=== PATIENT | male | born 2000 | race Caucasian/White ===

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

== ENCOUNTER → 2021-02-01 17:29 | Outpatient (CLI) | payer BC, SELFPAY ==
[2021-02-04 10:12] LABS: Endomysial IgA Antibody Negative (Negative)
[2021-02-04 16:13] LABS: Deamidated Gliadin Abs, IgA 3 units (0-19); Deamidated Gliadin Abs, IgG 2 units (0-19); Saccharomyces cerevisiae, IgA <20.0 Units (0.0-24.9); Saccharomyces cerevisiae, IgG <20.0 Units (0.0-24.9); Tissue Transglutaminase IgA Ab <2 U/mL (0-3); Tissue Transglutaminase IgG Ab 17 U/mL (0-5)
[2021-02-06 08:48] LABS: Reticulin IgA Antibody Negative titer (Neg:<1:2.5)
== END ==
PROVIDERS: Visit Provider Nurse Practitioner Family
DX: Z01.812 Encounter for preprocedural laboratory examination (principal); Z11.52 Encounter for screening for COVID-19; Z12.11 Encounter for screening for malignant neoplasm of colon; R19.7 Diarrhea, unspecified; K58.0 Irritable bowel syndrome with diarrhea
CPT/HCPCS: 36415; 83516; 86255; 86256; 86671; U0003

== ENCOUNTER 2021-02-04 09:58 | Day surgery (SDC) | payer BC, SELFPAY ==
[2021-02-01 14:21] VITALS: BMI 24.6
[2021-02-04 10:18] VITALS: BP 130/63; PULSE 69; RESP 18; TEMP 36.8; O2SAT 100
[2021-02-04 11:11] VITALS: O2SAT 96
--- NOTE | 2021-02-04 11:15 | HMH.ANESCL ---
[facility] Anesthesia Checklist - Structural Data Admitted From: Home Planned Operative Procedure/s: colonoscopy Consent for Planned Operative Procedure(s) Verified: Yes - Airway Assessment C-Spine Mobility Assessed: Yes TMJ Mobility Assessed: Yes Dentition: Good Dentition - Neurological Assessment Level of Consciousness: Awake, Alert, Appropriate - Anesthesia Plan Anesthesia Risk discussed: Yes Anesthesia Plan: Verified ASA Class: II Anesthesia Type: MAC [facility] History I have reviewed the patient's past medical history: Yes Medical History: Denies:: Cancer, Diabetes Mellitus Type 1, Diabetes Mellitus Type 2, MRSA, Seizures *Have you ever received a pneumonia vaccine?: No *Have you received a flu vaccine this season?: No Anesthesia experience/problems:: none Laterality Cases: Left: Arthroscopy Knee Amputation: No Fractures: Yes (finger) - *Social History Smoking Status: Never smoker Tobacco Type: cigarettes # Packs/Day (cigarettes): 1 Alcohol Intake: never Substance Use Type: denies use *Occupational Status:: employed Housing: house *Travel in the last 8 weeks: None Family Hx:: Unable to obtain, No significant family history
--- NOTE | 2021-02-04 11:34 | HMH.PROC ---
[facility] Procedure Note Procedure Note:: Colonoscopy Procedure Report: Colonoscopy with cold biopsies Endoscopist: Avni Santos II, MD Referring physician: Tomás Lepe MD Date of Procedure: February 04, 2021 Equipment: Olympus 190 variable stiffness pediatric colonoscope Sedation: MAC sedation Indication: Mr. Aguilar is a 20-year-old gentleman with a long history of irritable bowel syndrome since childhood who is here for diagnostic colonoscopy. He did see a piper installer at [facility] and at the [facility]. He did have an upper endoscopy at the [facility]. The patient reports bowel urgency and diarrhea. He has had lower abdominal discomfort for many years. He does state that this occurs 3-4 times a week and occurs the first thing in the morning. He does get abdominal crampiness. Sometimes he will have some resurgence after he gets to work in the morning. He does have more rare nausea with vomiting. He has had some loss of appetite. He will get some intermittent constipation. He tried dicyclomine that worked well initially but later stopped working. He also tried hyoscyamine with similar results. He does take IBgard 1 or 2 capsules a day and thinks that this may result in some improvement. His recent celiac serologies were normal (normal tissue transglutaminase and and antiendomysial antibody). His hemoglobin 14.6 and hematocrit 39.4 were normal. He also had normal CRP (less than 0.2) and normal sed rate (5). His ALT 43 and alkaline phosphatase 83 were normal. His amylase 21 and lipase 85 were normal. He had a normal IgA antibody 131. His stool lactoferrin was less than 1.0. Procedure: Prior to the procedure, a history and physical exam was performed, and patient's medications and allergies were reviewed. The risks, benefits and alternatives of the sedation and procedure were discussed with the patient. All questions were answered and informed consent was obtained. The patient was brought to the procedure room. Patient identification and proposed procedure were verified by the physician and the nurse. The patient was placed in a left lateral decubitus position and the scope was passed under direct vision. Throughout the procedure, the patient's blood pressure, pulse, and oxygen saturations were monitored continuously. The colonoscopy was accomplished without difficulty. The patient tolerated the procedure well. Findings: On digital rectal examination there was normal rectal tone. There were no external hemorrhoids. The colonoscope was introduced through the anal canal to the rectum and advanced to the cecum. The ileocecal valve and appendiceal orifice were identified. The scope was advanced a short distance into the ileum which appeared grossly normal. The scope was then withdrawn into the colon. The cecum, ascending and transverse colon and mucosa were grossly normal. Random cold biopsies were taken from the colon. There were very mildly scattered diverticuli throughout the sigmoid colon (LEFT colon). There was a single diminutive hyperplastic appearing sigmoid polyp removed via cold biopsy. The rectum itself was normal. Upon retroflexion within the rectum there were grade 1 internal hemorrhoids. The preparation was excellent throughout with [place] Preparation Score of 9. The cecal time was 12 minutes. Impression: 1. Diminutive hyperplastic appearing sigmoid polyp (3 mm) 2. Very mild sigmoid diverticulosis 3. Grade 1 internal hemorrhoids Plan: I do feel that the patient has spastic diverticular disease (form of IBS). I will discuss dietary measures, bulking fiber (FiberCon) and additional treatment options. I will follow-up the biopsies. I will review the findings with the patient and family.
[2021-02-04 11:35] VITALS: BP 108/56; PULSE 63; RESP 16; TEMP 36.4; O2SAT 99
[2021-02-04 11:45] VITALS: BP 104/57; PULSE 52; RESP 16; O2SAT 100
[2021-02-04 11:55] VITALS: BP 103/63; PULSE 53; RESP 16; O2SAT 100
[2021-02-04 12:15] VITALS: BP 108/63; PULSE 64; RESP 16; O2SAT 100
== END 2021-02-04 12:15 | disposition home or self-care (01) ==
PROVIDERS: PCP Family Medicine; Visit Provider Internal Medicine Gastroenterology
PROC: 0DJD8ZZ Inspection of Lower Intestinal Tract, Via Natural or Artificial Opening Endoscopic (ICD-10-PCS; CPT 45378; principal; 2021-02-04 12:30)
DX: K63.5 Polyp of colon (principal); K57.30 Diverticulosis of large intestine without perforation or abscess without bleeding; K64.0 First degree hemorrhoids; K58.2 Mixed irritable bowel syndrome
CPT/HCPCS: 45380

== ENCOUNTER 2022-01-01 02:23 | Emergency (ER) | payer BC, SELFPAY ==
[2022-01-01 02:24] VITALS: BP 129/67; PULSE 72; RESP 16; TEMP 36.4; O2SAT 100; BMI 23.7
--- NOTE | 2022-01-01 02:41 | CT_ITS ---
PROCEDURE INFORMATION: Exam: CT Abdomen And Pelvis With Contrast Exam date and time: 01/01/2022 2:46 AM Age: 21 years old Clinical indication: Nausea and vomiting; Abdominal pain; Localized; Lower TECHNIQUE: Imaging protocol: Computed tomography of the abdomen and pelvis with contrast. Radiation optimization: All CT scans at this facility use at least one of these dose optimization techniques: automated exposure control; mA and/or kV adjustment per patient size (includes targeted exams where dose is matched to clinical indication); or iterative reconstruction. Contrast material: ISOVUE; Contrast volume: 75 ml; Contrast route: IV; COMPARISON: ABDPELWO CT abdomen pelvis wo con 03/19/2018 5:40 PM FINDINGS: Liver: No suspicious mass. Gallbladder and bile ducts: No calcified stones. No ductal dilation. Pancreas: No ductal dilation. No peripancreatic inflammatory changes. Spleen: Unremarkable. Adrenal glands: No mass. Kidneys and ureters: Mild left-sided hydroureteronephrosis secondary to 0.2 cm calculus at the ureterovesicular junction. Stomach and bowel: Non-obstructive bowel gas pattern. No significant wall thickening. Appendix: Unremarkable appendix. Intraperitoneal space: No free air. No ascites. Vasculature: No abdominal aortic aneurysm. Lymph nodes: No enlarged lymph nodes. Urinary bladder: Unremarkable as visualized. Reproductive: The prostate is not enlarged. Bones/joints: No suspicious osseous lesion. No acute fracture. Soft tissues: No suspicious mass. IMPRESSION: Mild left-sided hydroureteronephrosis secondary to 0.2 cm calculus at the ureterovesicular junction.
[2022-01-01 03:00] LABS: Basophils # 0.3 K/mm3 (0-0.2); Eosinophils # 0.1 K/mm3 (0.0-0.4); Hematocrit 46.2 % (42.0-52.0); Hemoglobin 15.7 g/dL (14.1-18.0); Lymphocytes # 2.7 K/mm3 (0.7-4.5); Lymphocytes % 27.6 % (10-50); Mean Corpuscular HGB Conc 33.9 g/dL (31.8-35.4); Mean Corpuscular Hemoglobin 30.1 pg (27.0-31.2); Mean Corpuscular Volume 88.8 fl (80-94); Mean Platelet Volume 9.7 fl (7.4-10.4); Monocytes # 0.7 K/mm3 (0.1-1.0); Monocytes % 7.2 % (1.7-9.3); Neutrophils # 5.9 K/mm3 (1.8-7.8); Neutrophils % 61.2 % (37.0-80.0); Platelet Count 269 K/mm3 (142-424); White Blood Count 9.7 K/mm3 (4.5-13.0)
[2022-01-01 03:01] LABS: Microscopic, Urine URINE MICROSCOPIC (MICROSCOPIC)
[2022-01-01 03:05] LABS: Chloride 104 mmol/L (98-107)
[2022-01-01 03:06] LABS: Blood, Urine 3+ (Negative); Glucose,Urine (UA) Negative (Negative); Ketones,Urine 2+ (Negative); Leukocyte Esterase,Urine Negative (Negative); Nitrate,Urine Negative (Negative); Protein,Urine TRACE (Negative); Sodium 140 mmol/L (136-145); Specific Gravity, Urine 1.015 (1.005-1.030); Urobilinogen,Urine 0.2 EU/dl (0.2)
[2022-01-01 03:08] LABS: Alanine Aminotransferase 26 U/L (12-78); Alkaline Phosphatase 63 U/L (38-126); Amylase 45 U/L (30-110); Anion Gap 13.8 mEq/L (5-15); Aspartate Amino Transferase 34 U/L (17-59); Bilirubin,Total 0.7 mg/dl (0.2-1.3); Blood Urea Nitrogen 10 mg/dl (9-20); Carbon Dioxide 25 mmol/L (22.0-30.0); Creatinine Clearance Estimated 205 mL/min (50-200); Estimated Glomerular Filt Rate 144 ml/min (>60); GFR (African American) 174 ML/MIN (>60)
[2022-01-01 03:09] LABS: Albumin/Globulin Ratio 1.9 (1.1-1.8); Calcium 10.2 mg/dl (8.4-10.2); Globulin 2.7 g/dL (1.3-3.2); Glucose 193 mg/dl (74-100); Lipase 56 U/L (23-300); PH,Urine >= 9.0 (5.0-8.5); Total Protein,Serum 7.7 g/dl (6.3-8.2)
[2022-01-01 03:12] LABS: Appearance,Urine Cloudy (Clear); Bilirubin,Urine Negative (Negative); Color,Urine Dark Yellow (Yellow)
[2022-01-01 03:14] LABS: C-Reactive Protein 3.1 mg/L (0-4)
[2022-01-01 03:16] LABS: Potassium 2.8 mmoL/L (3.5-5.1)
[2022-01-01 03:18] LABS: Bacteria,Urine 1+ /lpf; RBC,Urine TNTC #/hpf (0-3)
[2022-01-01 03:36] LABS: Erythrocyte Sedimentation Rate 1 mm/hr (0-15)
--- NOTE | 2022-01-01 03:42 | HMH.EDNVD ---
ED Disposition Clinical Impression: Renal colic on left side Disposition: Home, Self-Care Condition on Discharge: Good Instructions: DI for Kidney Stones Additional Instructions: fluids and see pcp/urology for follow up Prescriptions: Tamsulosin HCl [Flomax 0.4mg capsule] 0.4 mg PO HS #10 cap Transmission Status: Pending to Clinic [facility] Referrals: Slick Lepe MD [Primary Care Provider] - - Critical Care Critical Care Time: No Attestation: On 01/01/22, the high probability of a clinically significant, sudden or life threatening deterioration of the following system(s) required my full and direct attention, intervention and personal management. The time I documented below is in addition to time spent performing reported procedures but includes the following listed in this critical care notation. Medical Decision Making - Medical Records Medical records reviewed: Yes: I reviewed the patient's medical records. - Sunil Inquiry Pt receiving controlled substance: No Vital Signs: 01/01/22 02:24 Temperature 97.6 F Temperature Source Oral Pulse Rate [Left Radial] 72 Respiratory Rate 16 Blood Pressure [Right Arm] 129/67 Blood Pressure Mean [Right Arm] 87 Blood Pressure Source [Right Arm] Automatic Cuff 02 Sat by Pulse Oximetry 100 Oxygen Delivery Method Room Air - Lab Data Lab results reviewed: Yes: I reviewed the patient's lab results. Lab Results 01/01/22 02:39: Urine Color Dark yellow, Urine Appearance Cloudy, Urine pH >= 9.0 H, Ur Specific [place] 1.015, Urine Protein Trace, Urine Glucose (UA) Negative, Urine Ketones 2+, Urine Blood 3+, Urine Nitrate Negative, Urine Bilirubin Negative, Urine Urobilinogen 0.2, Ur Leukocyte Esterase Negative, Urine RBC Tntc, Urine WBC 3-5, Ur Squamous Epith Cells 3-5, Urine Bacteria 1+ 01/01/22 02:39: WBC 9.7, RBC 5.20, Hgb 15.7, Hct 46.2, MCV 88.8, MCH 30.1, MCHC 33.9, RDW 14.0, Plt Count 269, MPV 9.7, Neut % (Auto) 61.2, Lymph % (Auto) 27.6, Love % (Auto) 7.2, Eos % (Auto) 1.0, Baso % (Auto) 3.0 H, Neut # (Auto) 5.9, Lymph # (Auto) 2.7, Love # (Auto) 0.7, Eos # (Auto) 0.1, Baso # (Auto) 0.3 H, ESR 1 01/01/22 02:39: Sodium 140, Potassium 2.8 L*, Chloride 104, Carbon Dioxide 25, Anion Gap 13.8, BUN 10, Creatinine 0.70, Estimated Creat Clear 205, Estimated GFR 144, Est GFR ( Amer) 174, Glucose 193 H, Calcium 10.2, Total Bilirubin 0.7, AST 34, ALT 26, Alkaline Phosphatase 63, C-Reactive Protein 3.1, Total Protein 7.7, Albumin 5.0, Globulin 2.7, Albumin/Globulin Ratio 1.9 H, Amylase 45, Lipase 56 01/01/22 02:39: Lactate 3.0 H 01/01/22 02:39: Procalcitonin 0.040 Result diagrams: 01/01/22 02:39 01/01/22 02:39 Orders (Tests/Meds): ED MEDICATIONS Generic Name Dose Route Start Last Admin Trade Name Freq PRN Reason Stop Dose Admin Sodium Chloride 1,000 mls @ 999 mls/hr 01/01/22 02:45 01/01/22 02:50 Sod Chlor 0.9% 1000ml Bag IV 01/01/22 03:45 999 mls/hr .Q1H1M REYNALDO Administration Sodium Chloride 8 ml 01/01/22 02:44 Sodium Chloride 0.9% 10ml Vial IV 01/31/22 02:43 NEEDED PRN dilute pepcid Tamsulosin HCl 0.4 mg 01/01/22 21:00 01/01/22 03:38 Tamsulosin 0.4mg Capsule PO 01/31/22 20:59 0.4 mg HS REYNALDO Administration Discontinued Medications Generic Name Dose Route Start Last Admin Trade Name Freq PRN Reason Stop Dose Admin Famotidine 20 mg 01/01/22 02:44 01/01/22 02:51 Famotidine 20mg/2ml Vial IV 01/01/22 02:45 20 mg ONCE ONE Administration Iopamidol 75 ml 01/01/22 02:56 01/01/22 02:57 Iopamidol-370 (76%);100ml Bottle IV 01/01/22 02:57 75 ml ONCE ONE Administration Ketorolac Tromethamine 30 mg 01/01/22 03:01 01/01/22 03:29 Ketorolac 30mg/Ml Vial IV 01/01/22 03:02 30 mg ONCE ONE Administration Ketorolac Tromethamine 30 mg 01/01/22 03:01 01/01/22 03:21 Ketorolac 30mg/Ml Vial IV 01/01/22 03:02 Not Given ONCE ONE Metoclopramide HCl 10 mg 01/01/22 02:
[2022-01-01 03:50] VITALS: BP 127/59; PULSE 57; RESP 16; TEMP 36.8; O2SAT 100
[2022-01-01 06:59] LABS: Reflex Lactic Add Lactic Reflex
== END 2022-01-01 04:00 | disposition home or self-care (01) ==
PROVIDERS: Emergency Provider Emergency Medicine; PCP Family Medicine
DX: N23 Unspecified renal colic (principal)
CPT/HCPCS: 74177; 80053; 81001; 82150; 83605; 83690; 84145; 85025; 85651; 86140; 87040; 96365; 96375; 99284; J2405; Q9967

== ENCOUNTER 2022-01-02 09:47 | Emergency (ER) | payer BC, SELFPAY ==
[2022-01-02 09:47] VITALS: BP 142/69; PULSE 61; RESP 18; TEMP 36.7; O2SAT 97; BMI 23.1
--- NOTE | 2022-01-02 09:50 | PC.NURSE ---
pt ambulatory to restroom to provide urine specimen; no complications
--- NOTE | 2022-01-02 09:55 | PC.NURSE ---
Aura Deras, RN at
--- NOTE | 2022-01-02 09:55 | PC.NURSE ---
patient ambulatory to ED room 10 without complications; warm blanket given. Family at BS
[2022-01-02 09:59] LABS: Microscopic, Urine URINE MICROSCOPIC (MICROSCOPIC)
[2022-01-02 10:02] LABS: Blood, Urine 2+ (Negative); Color,Urine YELLOW (Yellow); Glucose,Urine (UA) Negative (Negative); Ketones,Urine 2+ (Negative); Leukocyte Esterase,Urine Negative (Negative); Nitrate,Urine Negative (Negative); PH,Urine 7.5 (5.0-8.5); Protein,Urine Negative (Negative); Specific Gravity, Urine 1.015 (1.005-1.030); Urobilinogen,Urine 0.2 EU/dl (0.2)
--- NOTE | 2022-01-02 10:02 | PC.NURSE ---
ED MD at
--- NOTE | 2022-01-02 10:08 | HMH.EDGENADL ---
ED Disposition Clinical Impression: Ureteral calculus Disposition: Home, Self-Care Condition on Discharge: Good Instructions: DI for Kidney Stones Additional Instructions: Continue Flomax as prescribed. Percocet as needed for pain. Zofran as needed for nausea. Additional instructions for KIDNEY STONE (URETERAL CALCULUS): See your PCP tomorrow as scheduled. Drink plenty of fluids. Strain your urine and save any stones you catch. Return immediately if you develop a fever or have uncontrollable vomiting or uncontrollable pain. What is known about DIET and KIDNEY STONES: Most kidney stones contain calcium oxalate. The logical assumption would be that you should avoid calcium and oxalate in your diet. Contrary to what you would think, this is not necessarily the case. What is actually recommended for kidney stone prevention is a diet that contains MODERATELY HIGH AMOUNTS OF CALCIUM and is LOW IN SODIUM with PLENTY OF FLUIDS. Recommendations: Drink a lot of water each day: A minimum would be 8-10 glasses (8 oz each) of fluid per day. Reduce Sodium: Try not to get more than 1500 mg a day. Increase Calcium: Dietary calcium prevents absorption of oxalate which helps prevent stones. Make sure you get about 1000 to 1200 mg a day. You can get enough calcium from dairy products without taking supplements. Calcium should be ingested with meals, not in between meals. You need to get your calcium at mealtime to decrease the absorption of oxalate from other foods. Eat dairy with each meal (e.g. milk or cheese or yogurt). Oxalate: Although some experts recommend avoiding oxalate in your diet, there have been no studies that prove this works. Eating more calcium will reduce oxalate absorption, and is probably all that is needed to reduce oxalate in your urine. Oxalate containing foods are generally good for you in all other respects - leafy greens, nuts, etc... So avoiding them unnecessarily might not be the best thing for your health. ALSO: If you retrieve your stone by straining your urine, take it to your physician for stone analysis, which can help tailor your dietary recommendations. For further reading, check out the [facility] web page about the kidney stone diet: [email or web address].[email or web address]-[email or web address] Additional instructions for CONTROLLED SUBSTANCES: You have been prescribed a medication that is a controlled substance. Controlled substances include pain medications known as opiates and sedative nerve medications known as benzodiazepines. Tramadol, fioricet, and gabapentin are also controlled substances. Some common opiates include: Codeine (such as Tylenol #3) Hydrocodone (Vicodin, Lortab, Lorcet, [place]) Oxycodone (Percocet, Percodan, Oxycodone, Oxy IR) Some common benzodiazepines include: Diazepam (Valium) Lorazepam (Ativan) Alprazolam (Xanax) Clonazepam (Klonopin) Oxazepam (Serax) All of these controlled substances are highly addictive and frequently abused. Misuse can and frequently does lead to addiction as well as overdose and . Medication should be stored in a locked cabinet or other secure storage unit. Do not store the medication in a motor vehicle. Short term supplies, 3 days or less, are prescribed because of the highly addictive nature of the medication. Any of the controlled substance medication NOT taken should be disposed of properly and NOT SAVED. The recommended method of disposing of unused medications is: Place the medicines in a sealable plastic bag. If the medicine is a solid, crush it or add water to dissolve it. Add something undesirable (cat litter, coffee grounds, etc.) Dispose of sealed bag in household trash Do not flush or pour unused medicines down a sink or drain. Controlled substances should not be shared, given away or sold. Because of the addictive nature and frequent abuse, these medications are sometime
[2022-01-02 10:15] VITALS: BP 126/76; PULSE 59; O2SAT 100
[2022-01-02 10:16] LABS: Basophils # 0.1 K/mm3 (0-0.2); Basophils % 1.3 % (0.1-2.0); Eosinophils # 0.1 K/mm3 (0.0-0.4); Eosinophils % 0.6 % (0.1-12.0); Hematocrit 42.6 % (42.0-52.0); Hemoglobin 14.2 g/dL (14.1-18.0); Lymphocytes # 1.2 K/mm3 (0.7-4.5); Lymphocytes % 13.8 % (10-50); Mean Corpuscular HGB Conc 33.2 g/dL (31.8-35.4); Mean Corpuscular Hemoglobin 29.8 pg (27.0-31.2); Mean Corpuscular Volume 89.7 fl (80-94); Mean Platelet Volume 10.3 fl (7.4-10.4); Monocytes # 0.5 K/mm3 (0.1-1.0); Monocytes % 6.1 % (1.7-9.3); Neutrophils # 6.7 K/mm3 (1.8-7.8); Neutrophils % 78.3 % (37.0-80.0); Platelet Count 171 K/mm3 (142-424); Red Blood Count 4.75 M/mm3 (4.60-6.20); Red Cell Distribution Width 13.8 % (11.5-17.5); White Blood Count 8.5 K/mm3 (4.5-13.0)
[2022-01-02 10:22] LABS: Appearance,Urine Cloudy (Clear)
[2022-01-02 10:30] LABS: Bilirubin,Urine 1+ (Negative)
[2022-01-02 10:32] LABS: Amorphous Sediment,Urine 2+ /lpf; Bacteria,Urine 4+ /lpf; RBC,Urine 20-50 #/hpf (0-3); Squamous Epithelial Cell,Urine Occasional #/hpf (0-5); WBC,Urine Occasional #/hpf (0-3)
[2022-01-02 10:37] VITALS: BP 112/56; PULSE 53; O2SAT 96
[2022-01-02 10:37] LABS: Chloride 106 mmol/L (98-107)
[2022-01-02 10:38] LABS: Potassium 3.6 mmoL/L (3.5-5.1); Sodium 140 mmol/L (136-145)
[2022-01-02 10:40] LABS: Alanine Aminotransferase 17 U/L (12-78); Alkaline Phosphatase 52 U/L (38-126); Aspartate Amino Transferase 26 U/L (17-59); Bilirubin,Total 0.6 mg/dl (0.2-1.3); Blood Urea Nitrogen 12 mg/dl (9-20); Creatinine Clearance Estimated 175 mL/min (50-200); Estimated Glomerular Filt Rate 123 ml/min (>60); GFR (African American) 149 ML/MIN (>60)
[2022-01-02 10:41] LABS: Albumin Level 4.3 g/dl (3.5-5.0); Albumin/Globulin Ratio 1.7 (1.1-1.8); Anion Gap 8.6 mEq/L (5-15); Calcium 9.7 mg/dl (8.4-10.2); Carbon Dioxide 29 mmol/L (22.0-30.0); Globulin 2.6 g/dL (1.3-3.2); Glucose 124 mg/dl (74-100); Total Protein,Serum 6.9 g/dl (6.3-8.2)
[2022-01-02 11:02] VITALS: BP 120/66; PULSE 52; O2SAT 99
[2022-01-02 11:30] VITALS: BP 126/64; PULSE 50; O2SAT 97
--- NOTE | 2022-01-02 11:49 | PC.NURSE ---
pt mother at
--- NOTE | 2022-01-02 11:50 | PC.NURSE ---
KITTY CEVALLOS at discussing test results with pt.
[2022-01-02 12:02] VITALS: BP 126/64; PULSE 61; RESP 19; TEMP 36.7; O2SAT 97
== END 2022-01-02 12:03 | disposition home or self-care (01) ==
PROVIDERS: Emergency Provider Emergency Medicine; PCP Family Medicine
DX: N20.1 Calculus of ureter (principal); M54.9 Dorsalgia, unspecified; R11.10 Vomiting, unspecified
CPT/HCPCS: 80053; 81001; 85025; 87086; 96374; 96375; 96376; 99285; J2405

== ENCOUNTER 2024-06-13 09:37 | Emergency (ER) | payer BC, SELFPAY ==
[2024-06-13 09:37] VITALS: BP 127/72; PULSE 62; RESP 16; TEMP 36.6; O2SAT 100; BMI 22.5
--- NOTE | 2024-06-13 09:39 | XR_ITS ---
FINAL REPORT CLINICAL HISTORY: mid sternum chest pain after smoking COMPARISON: None FINDINGS: A single portable view of the chest was obtained. The heart size and pulmonary vascularity are within normal limits. The mediastinum is within normal limits. No acute pulmonary abnormality is identified. The bony thorax is intact. IMPRESSION: No active cardiopulmonary disease. Reviewed, Interpreted and Dictated by Dima Hinton III, MD Transcribed by Allyn Tavares Authenticated and [facility]
--- NOTE | 2024-06-13 09:40 | ECG_ITS ---
APPROVED REPORT Exam: Resting ECG HR:54 bpm ECG Measurements Heart Rate 54 AXES NC 130 P 23 QRSd 89 QRS 78 QT 408 T 62 QTc 394 Conclusion SINUS BRADYCARDIA Electronically signed by : JOEL SALDAÑA, 06/14/2024 15:01:48
--- NOTE | 2024-06-13 09:53 | PC.NURSE ---
xr at bedside
[2024-06-13] MEDS: KETOROLAC 30MG/ML VIAL 15 MG IV (09:55)
[2024-06-13] MEDS: ALUMINUM/MAGNESIUM/SIMETHICONE 30ML UDC 30 ML PO (09:55)
--- NOTE | 2024-06-13 09:55 | [facility].EDCP ---
Discharge Plan Disposition Patient Disposition: Home, Self-Care Prescriptions Prescriptions: New esomeprazole magnesium 20 mg capsule,delayed release(DR/EC) 20 mg PO DAILY 56 Days Qty: 56 1RF No Action buspirone 10 MG tablet 10 mg PO BID tamsulosin 0.4 MG capsule 0.4 mg PO HS Qty: 10 0RF oxycodone-acetaminophen 1 EACH tablet 1 tab PO Q6HP PRN (Reason: Moderate To Severe Pain) Qty: 20 0RF ondansetron 4 MG tablet,disintegrating 4 mg PO TIDP PRN (Reason: Nausea And Vomiting) Qty: 10 0RF Referrals Follow up/Referrals: Yulissa Lepe [Primary Care Provider] - See instructions Activity Restrictions/Add. Instructions Additional Instructions/Restrictions: Call your family doctor to establish care for this visit to the emergency department and schedule follow-up within 48 hours to ensure improvement. If you have any worsening of your condition or any other concerning signs or symptoms, return to the emergency department or your primary care doctor for further evaluation. Clinical Impressions Clinical Impression: Acute epigastric pain Stand Alone Forms Stand Alone Forms: Work/School Release Print Language Print Language: Niuean Discharge ED Provider: Connor Aquino General Chief Complaint: Chest Pain Stated Complaint: Chest Pain Time Seen by Provider: 06/13/24 09:38 Mode of Arrival: Ambulatory Source of Information: Patient Limitations: No Limitations Description of Symptoms (Recalled from ER Triage Doc. by RN): Patient states that he was at work went outside and got a drink when he decided to take a hit off of his vape. States after that he began to have constant epigastric pain that feels like pressure. History of Present Illness HPI narrative: Please note that above description of symptoms, in this electronic medical record under categorization of recalled from ER triage doctor by RN are reflective of an initial nursing assessment, however, is not reflective of my full history and physical exam that was personally taken and clarified. Consequentially, this preceding description of symptoms, which may include the patient's categorized chief complaint in the EMR, do not reflect my personal clinical impression, and the ultimate description of history of present illness and patient stated complaints should be deferred to this section of the note. Unless stated otherwise or congruent with this section of the note, additional signs, symptoms, or incongruence should be interpreted as inaccurate with my clinical impression. Related Data Home Medications ?Medication ?Instructions ?Recorded ?Confirmed buspirone 10 mg tablet 10 mg PO BID STOMACH CRAMPS 01/01/22 01/01/22 Previous Rx's ?Medication ?Instructions ?Recorded tamsulosin 0.4 mg capsule 0.4 mg PO HS #10 caps 01/01/22 ondansetron 4 mg disintegrating 4 mg PO TIDP PRN Nausea And 01/02/22 tablet Vomiting #10 tabs oxycodone-acetaminophen 5 mg-325 1 tab PO Q6HP PRN Moderate To 01/02/22 mg tablet Severe Pain #20 tabs esomeprazole magnesium 20 mg 20 mg PO DAILY 8 weeks #56 caps 06/13/24 capsule,delayed release Allergies Allergy/AdvReac Type Severity Reaction Status Date / Time No Known Allergies Allergy Unverified 07/28/17 15:10 [facility] Disclaimer: The information contained in this section may have been updated after the patient was seen, as this information can be updated by other users. Social History Smoking Status: Current every day smoker tobacco type: cigarettes packs per day: 1 alcohol intake: never substance use type: denies use current occupational status: employed Travel in the last 8 weeks: None housing: house current occupational exposures/hazards: Yes Other Medical History Have you received the Flu Vaccine for this season: Yes Have you received the Pneumonia Vaccine: No ROS Obtained: Yes All systems reviewed & no additional complaints except as documented Physical Exam General General appearance: alert Neck Neck exam: Present trachea midline Chest Chest inspection: Present normal inspection and symmetric chest wall rise Respiratory Respiratory exam: Present normal lung sounds bilaterally; Absent respiratory distress, wheezes, stridor, accessory muscle use or prolonged expiratory phase Cardiovascular Cardiovascular exam: Present regular rate, normal rhythm and other (Pulses equal and symmetric in upper and lower extremities) Extremities Exam Extremities exam: Absent edema Neurological Exam Neurological exam: Present alert, oriented X3 and CN II-XII intact Skin Skin exam: Present warm and dry; Absent cyanosis, diaphoresis or pallor HEART Score HEART Score HEART Score assessment performed?: Yes HEART Score: 0 Critical Care Critical Care Time Critical Care Time: No Medical Decision Making Medical Records Medical records reviewed: Yes I reviewed the patient's medical records. Sunil Inquiry Pt receiving controlled substance: No Sunil was queried for this patient: No Vital Signs Vital Signs: 06/13/24 09:37 06/13/24 11:04 Temperature 97.9 F 98.0 F Temperature Source Oral Oral Pulse Rate 62 Pulse Rate [Radial] 62 Respiratory Rate 16 16 Blood Pressure 105/69 L Blood Pressure [Right Arm] 127/72 Blood Pressure Mean [Right Arm] 90 Blood Pressure Source Automatic Cuff Blood Pressure Source [Right Arm] Automatic Cuff Blood Pressure Position Sitting Blood Pressure Position [Right Arm] Sitting 02 Sat by Pulse Oximetry 100 Oxygen Delivery Method Room Air Room Air Lab Data Labs: Lab Results 06/13/24 09:52: WBC 5.7, RBC 4.71, Hgb 14.0 L, Hct 42.3, MCV 89.7, MCH 29.8, MCHC 33.2, RDW 13.8, Plt Count 201, MPV 8.6, Neut % (Auto) 47.6, Lymph % (Auto) 43.4, [place] % (Auto) 7.0, Eos % (Auto) 1.0, Baso % (Auto) 1.0, Neut # (Auto) 2.7, Lymph # (Auto) 2.5, [place] # (Auto) 0.4, Eos # (Auto) 0.1, Baso # (Auto) 0.1, APTT 24.6, Sodium 139, Potassium 3.9, Chloride 105, Carbon Dioxide 28, Anion Gap 9.9, BUN 11, Creatinine 0.70, Estimated Creat Clear 195, Estimated GFR 140, Est GFR ( Amer) 169, Glucose 137 H, Calcium 8.8, Total Bilirubin 0.5, AST 30, ALT 18, Alkaline Phosphatase 47, Troponin I < 0.01, Total Protein 6.5, Albumin 4.1, Globulin 2.4, Albumin/Globulin Ratio 1.7, Lipase 76 06/13/24 09:52 06/13/24 09:52 Response Orders (Tests/Meds): ED MEDICATIONS Discontinued Medications Generic Name Dose Route Start Last Admin Trade Name Freq PRN Reason Stop Dose Admin Al Hydrox/Mg Hydrox/Simethicone 30 ml 06/13/24 09:38 06/13/24 09:55 Aluminum/Magnesium/Simethicone 30ml Udc PO 06/13/24 09:39 30 ml ONCE ONE Administration Ketorolac Tromethamine 15 mg 06/13/24 09:38 06/13/24 09:55 Ketorolac 30mg/Ml Vial IV 06/13/24 09:39 15 mg ONCE ONE Administration ORDERS Category Date Time Status XR chest portable Stat Exams 06/13/24 09:39 Taken Complete Blood Count Auto Diff Stat Lab 06/13/24 09:52 Completed Comprehensive Metabolic Panel Stat Lab 06/13/24 09:52 Completed HIV (1&2) Antibody Rapid Stat Lab 06/13/24 09:41 Ordered Hep C Ab with Reflex to RNA Stat Lab 06/13/24 09:41 Ordered Lipase Stat Lab 06/13/24 09:52 Completed PTT [Activated Partial Thrombo Time] Stat Lab 06/13/24 09:52 Completed Troponin I Q3H Lab 06/13/24 12:45 Ordered Troponin I Q3H Lab 06/13/24 15:45 Ordered Troponin I Stat Lab 06/13/24 09:52 Completed MDM Narrative Medical Decision Narrative: 24-year-old male no relevant medical history of GERD in the past not currently on antacid medication presenting with epigastric versus chest pain. Patient states he was at work, took a drink of carbonated energy drink, walked outside and smoked his vaporizer pen. Shortly thereafter had lower sternal versus epigastric pain. Does not radiate, no associated vomiting, diaphoresis, shortness of breath, cough, syncope, or any other concerns. No other associated symptoms. History was obtained via conversation with patient. On arrival, patient hemodynamically stable, alert, oriented x4, appropriate, GCS 15, moving all extremities spontaneously, pupils equal and reactive to light. Full physical exam performed and significant for very well-appearing male no acute distress. Cardiopulmonary exam within normal limits. Pulses equal and symmetric, neurologically intact, ambulatory, vital signs stable. Differential includes gastric reflux, esophagitis, irritation pneumonitis, less likely ACS, FL, PE, pneumothorax, among others. Patient was given Maalox and Toradol for symptomatic management and correction of underlying abnormalities. Patient placed on continuous cardiac monitoring and continuous pulse ox with initial blood pressure 127/72, heart rate 62, saturation 100% on room air. Independent interpretation of EKG shows sinus bradycardia 54 beats a minute without ST or T wave changes concerning for acute ischemia. HI 130, QRS 89, QTc 394. Workup independently interpreted and significant for nonactionable hematologic workup. On independent interpretation of imaging, no acute cardiopulmonary airspace disease. No evidence of pneumothorax. See radiology read for full review of final results. Heart score 0. On reevaluatio patient states he is feeling about the same, mild relief from medications, but still there. Given patient presentation, workup, history, this most likely represents gastritis versus PUD versus esophagitis. Less likely coronary artery disease versus other cardiac abnormality. No family history of this at early age, very well-appearing, normal labs otherwise and imaging. Close return precautions were given. Call your family doctor to establish care for this visit to the emergency department and schedule follow-up within 48 hours to ensure improvement. If you have any worsening of your condition or any other concerning signs or symptoms, return to the emergency department or your primary care doctor for further evaluation. Career Information Specialist disclaimer Much of this encounter note is an electronic information technology instructor spoken language to printed text. Electronic information technology instructor of the spoken language may permit errors. Although I have reviewed the note, some errors may still exist.
[2024-06-13 10:13] LABS: Chloride 105 mmol/L (98-107)
[2024-06-13 10:14] LABS: Albumin Level 4.1 g/dl (3.5-5.0); Potassium 3.9 mmoL/L (3.5-5.1); Sodium 139 mmol/L (136-145)
[2024-06-13 10:17] LABS: Alanine Aminotransferase 18 U/L (12-78); Albumin/Globulin Ratio 1.7 (1.1-1.8); Alkaline Phosphatase 47 U/L (38-126); Anion Gap 9.9 mEq/L (5-15); Aspartate Amino Transferase 30 U/L (17-59); Basophils # 0.1 K/mm3 (0-0.2); Bilirubin,Total 0.5 mg/dl (0.2-1.3); Blood Urea Nitrogen 11 mg/dl (9-20); Calcium 8.8 mg/dl (8.4-10.2); Carbon Dioxide 28 mmol/L (22.0-30.0); Creatinine Clearance Estimated 195 mL/min (50-200); Eosinophils # 0.1 K/mm3 (0.0-0.4); Estimated Glomerular Filt Rate 140 ml/min (>60); GFR (African American) 169 ML/MIN (>60); Globulin 2.4 g/dL (1.3-3.2); Glucose 137 mg/dl (74-100); Hematocrit 42.3 % (42.0-52.0); Lymphocytes # 2.5 K/mm3 (0.7-4.5); Lymphocytes % 43.4 % (10-50); Mean Corpuscular HGB Conc 33.2 g/dL (31.8-35.4); Mean Corpuscular Hemoglobin 29.8 pg (27.0-31.2); Mean Corpuscular Volume 89.7 fl (80-94); Mean Platelet Volume 8.6 fl (7.4-10.4); Monocytes # 0.4 K/mm3 (0.1-1.0); Neutrophils # 2.7 K/mm3 (1.8-7.8); Neutrophils % 47.6 % (37.0-80.0); Platelet Count 201 K/mm3 (142-424); Red Blood Count 4.71 M/mm3 (4.60-6.20); Red Cell Distribution Width 13.8 % (11.5-17.5); Total Protein,Serum 6.5 g/dl (6.3-8.2); White Blood Count 5.7 K/mm3 (4.8-10.8)
[2024-06-13 10:26] LABS: Activated Partial Thrombo Time 24.6 seconds (22.8-30.6)
[2024-06-13 10:30] VITALS: BP 106/70; PULSE 54; O2SAT 100
[2024-06-13 10:37] LABS: Troponin I < 0.01 ng/ml (0.00-0.034)
[2024-06-13 10:45] LABS: Lipase 76 U/L (23-300)
[2024-06-13 11:00] VITALS: BP 105/69; PULSE 53; O2SAT 100
[2024-06-13 11:04] VITALS: BP 105/69; PULSE 62; RESP 16; TEMP 36.7; O2SAT 100
[2024-06-13 15:32] LABS: HIV (1&2) Antibody Rapid NONREACTIVE (NONREACTIVE)
[2024-06-14 09:28] LABS: HCV Ab Non Reactive (Non Reactive)
== END 2024-06-13 11:08 | disposition home or self-care (01) ==
PROVIDERS: Emergency Provider Emergency Medicine; PCP Family Medicine
DX: R10.13 Epigastric pain (principal); R07.9 Chest pain, unspecified
CPT/HCPCS: 71045; 80053; 83690; 84484; 85025; 85730; 86803; 87389; 93005; 96374; 99284; J1885

== ENCOUNTER 2024-09-17 18:00 | Emergency (ER) | payer BC, SELFPAY ==
[2024-09-17 18:27] VITALS: BP 131/78; PULSE 71; RESP 18; TEMP 36.7; O2SAT 97; BMI 24.0
[2024-09-17 18:29] LABS: UTC Influenza A Antigen Positive (Negative); UTC Influenza B Antigen Negative (Negative)
--- NOTE | 2024-09-17 18:29 | ED_ITS ---
Discharge Plan Disposition Patient Disposition: Home, Self-Care Condition: Good Prescriptions Prescriptions: New oseltamivir [Tamiflu] 75 mg capsule 75 mg PO BID 5 Days Qty: 10 0RF No Action buspirone 10 MG tablet 10 mg PO BID esomeprazole magnesium 20 mg capsule,delayed release(DR/EC) 20 mg PO DAILY 56 Days Qty: 56 1RF Referrals Follow up/Referrals: Slick Lepe MD [Primary Care Provider] - See instructions Activity Restrictions/Add. Instructions Additional Instructions/Restrictions: Viruses can take 7-14 days to run their course. Nasal saline and bulb syringe or nose Lauren to remove nasal drainage to help with nasal congestion. Hard to eat, drink, sleep with nasal congestion so important to keep this cleaned out. Monitor temp. Tylenol or Motrin as needed for pain or fever Encourage fluids, water, Gatorade, Powerade, Pedialyte if /toddler/child Warm salt water gargles Warm fluids Sore throat lozenges Sleep elevated Humidifier/vaporizer Follow-up immediately for new or worsening symptoms or no noticeable improvement over the next 48-72 hours. Clinical Impressions Clinical Impression: Influenza A Instructions Patient Instructions: DI for Influenza -- Adult Print Language Print Language: Prydeinig Discharge ED Provider: Con[facility] [place] General Stated complaint: fever Mode of Arrival: Ambulatory Source of Information: Patient Time Seen by Provider: 09/17/24 18:29 Description of Symptoms (Recalled from Triage Doc. by RN): SORE THROAT, FEVER, COUGH HEENT Symptoms (Recalled from RN notes): Yes Resp Symptoms (Recalled from RN notes): Yes Skin Symptoms (Recalled from RN notes): No MS Symptoms (Recalled from RN notes): No Functional Status (Recalled from RN notes): WNL History of Present Illness Provider Complaint: 24-year-old male presents for sore throat, fever, and cough that started this morning. Related Data Home Medications ?Medication ?Instructions ?Recorded ?Confirmed buspirone 10 mg tablet 10 mg PO BID STOMACH CRAMPS 01/01/22 01/01/22 Previous Rx's ?Medication ?Instructions ?Recorded esomeprazole magnesium 20 mg 20 mg PO DAILY 8 weeks #56 caps 06/13/24 capsule,delayed release oseltamivir 75 mg capsule (Tamiflu) 75 mg PO BID 5 days #10 caps 09/17/24 Allergies Allergy/AdvReac Type Severity Reaction Status Date / Time No Known Allergies Allergy Unverified 07/28/17 15:10 Worker's Comp Is this a Worker's Comp case?: No [facility] Disclaimer: The information contained in this section may have been updated after the patient was seen, as this information can be updated by other users. Social History , [employer]) Smoking Status: Current every day smoker tobacco type: cigarettes packs per day: 1 alcohol intake: never substance use type: denies use current occupational status: employed Travel in the last 8 weeks: None housing: house current occupational exposures/hazards: Yes ROS Obtained: Yes Systems reviewed as appropriate & no additional complaints except as documented Physical Exam General General appearance: alert and in no apparent distress ENT ENT exam: Present normal exam, normal oropharynx, mucous membranes moist and TM's normal bilaterally Respiratory Respiratory exam: Present normal lung sounds bilaterally Cardiovascular Cardiovascular exam: Present regular rate and normal rhythm Neurological Exam Neurological exam: Present alert and oriented X3 Skin Skin exam: Present warm and intact Medical Decision Making Medical Records Medical records reviewed: Yes I reviewed the patient's medical records. Screening: Per USPSTF and CDC recommendations, given the prevalence of disease in our [place], it is our hospital?s policy to screen for HIV and viral Hepatitis for all patients aged 18 and over and those with ongoing risk factors. Sunil Inquiry Pt receiving controlled substance: No Sunil was queried for this patient: No Vital Signs: 09/17/24 18:27 Temperature 98.1 F Temperature Source Oral Pulse Rate [Left Radial] 71 Respiratory Rate 18 Blood Pressure [Left Arm] 131/78 Blood Pressure Mean [Left Arm] 95 02 Sat by Pulse Oximetry 97 Lab Data Lab results reviewed: Yes I reviewed the patient's lab results.
[2024-09-17 18:40] VITALS: BP 131/78; PULSE 71; RESP 18; TEMP 36.7
== END 2024-09-17 18:45 | disposition home or self-care (01) ==
PROVIDERS: Emergency Provider Nurse Practitioner Family; PCP Family Medicine
DX: J10.1 Influenza due to other identified influenza virus with other respiratory manifestations (principal)
CPT/HCPCS: 87804; 99213; G0381

== ENCOUNTER 2024-11-16 10:28 | Outpatient (CLI) | payer BC, SELFPAY ==
[2024-11-16 13:30] LABS: Semen Viscosity Watery (Normal); WBCs,Semen Negative
[2024-11-16 14:04] LABS: Sperm Count 45 mil/mm3 (20-160)
[2024-11-16 14:05] LABS: 3Hr Sperm Motility 60 % (50-60); Motility Quality Good Progression (Mod-Rapid); Sperm Motility 90 % (50-90)
[2024-11-16 14:06] LABS: 3Hr Motility Quality Moderate Progression (Mod-Rapid); Sperm Morphology Normal (Normal)
== END 2024-11-16 23:59 | disposition home or self-care (01) ==
LOC: LAB 10:29
PROVIDERS: PCP Family Medicine; Visit Provider Obstetrics & Gynecology
DX: E34.52 Partial androgen insensitivity syndrome (principal)
CPT/HCPCS: 89320